=== PATIENT | female | born 1990 | race African-American/Black ===

== ENCOUNTER 2018-01-08 19:29 | Emergency (ER) | payer OTHER ==
[~2018-01-08] VITALS: Ht 157.5 cm; Wt 71.0 kg
[~2018-01-08 19:29] MED LIST: AUGMENTIN875TAB PO; BACTRIM DS1 TAB PO; BRETHINE2.5 MG OR; CEPHALEXIN500 MG PO; CIPROFLOXACN500 MG PO; CLARITIN5 MG PO; DEPO-PROVER150 MG/M1; DEPO-PROVER400 MG/ML IM; FIORICET PO; FLEXERIL PO; FLONASE NASAL50 MCG; FLUZONE SPLT1 M1 IM; GENTAK0.32 OU; KEFLEX500 MG PO; LORTAB 5 OR; LORTAB5 PO; MEDDOSEPAK PO; METROGEL VAG0.75 % VA; NAPROSYN500 MG PO; NO; NO MEDS; OB COMPLET2 PO; ONDANSETRON ODT8 MG PO; ONDANSETRON4 MG PO; PERCOCET 5/325M1 TAB OR; PHENERGAN SUP12.5 MG RE; PREVACID30 M2 PO; TUBERSOL5 MG/0.1 M ID; ULTRAM50 M1 PO; ZITHROMAX250 MG PO; ZOFRAN ODT8 MG PO
[2018-01-08] MEDS ORDERED: PERCOCET 5/325M1 TAB PO (23:37)
[2018-01-08 23:52] VITALS: BP 108/60
== END 2018-01-08 23:59 | disposition home or self-care (01) | DRG 605 ==
LOC: ED 19:29
DX: S30.1XXA Contusion of abdominal wall, initial encounter (principal); S10.93XA Contusion of unspecified part of neck, initial encounter; S40.012A Contusion of left shoulder, initial encounter; S30.0XXA Contusion of lower back and pelvis, initial encounter; V49.59XA Passenger injured in collision with other motor vehicles in traffic accident, initial encounter; Y92.410 Unspecified street and highway as the place of occurrence of the external cause